=== PATIENT | female | born 1990 | race Caucasian/White ===

== ENCOUNTER → 2017-09-09 | Outpatient (CLI) | payer SELFPAY ==
[~2017-09-09] VITALS: Ht 167.6 cm; Wt 120.0 kg
[~2017-09-09] MED LIST: LORA-446 PO; PREN1TAB69 PO; SERT100T5 PO; TRAM50TA2 PO
[2017-09-09 20:59] LABS: HEMATOCRIT 37.7 % (34.6-47.8); HEMOGLOBIN 12.7 g/dL (11.7-16.4); WHITE BLOOD COUNT 8.8 x10^3/uL (3.4-10)
[2017-09-09 21:11] LABS: ASPARTATE AMINO TRANSFERASE 18 U/L (15-37); BLOOD UREA NITROGEN 6 mg/dL (7-18)
== END | disposition home or self-care (01) ==
LOC: LDOP 19:59
PROVIDERS: ATTEND Obstetrics & Gynecology
DX: O26.893 Other specified pregnancy related conditions, third trimester (principal); O36.8130 Decreased fetal movements, third trimester, not applicable or unspecified; O99.343 Other mental disorders complicating pregnancy, third trimester; R10.9 Unspecified abdominal pain; F32.9 Major depressive disorder, single episode, unspecified; Z3A.35 35 weeks gestation of pregnancy
CPT/HCPCS: 36415; 59025; 80053; 81001; 84550; 85025; 87086; 99201; G0463

== ENCOUNTER 2017-09-11 16:42 | Outpatient (CLI) | payer SELFPAY ==
[~2017-09-11] VITALS: Ht 167.6 cm; Wt 120.0 kg
[~2017-09-11 16:42] MED LIST changes: -PREN1TAB69 PO
[2017-09-11 16:59] VITALS: BP 134/89
[2017-09-11] MEDS ORDERED: PREN1TAB69 PO (17:14)
[2017-09-11 18:14] LABS: HEMATOCRIT 38.1 % (34.6-47.8); HEMOGLOBIN 12.9 g/dL (11.7-16.4); WHITE BLOOD COUNT 9.3 x10^3/uL (3.4-10)
[2017-09-11 18:24] LABS: ASPARTATE AMINO TRANSFERASE 13 U/L (15-37); BLOOD UREA NITROGEN 5 mg/dL (7-18)
[2017-09-11] MEDS ORDERED: ACETAMINOPHEN 325 MG TABLET ONE (19:22)
[2017-09-11] MEDS ORDERED: ACETAMINOPHEN 325 MG TABLET PO PRN (19:30)
== END 2017-09-11 20:21 | disposition home or self-care (01) ==
LOC: LDOP 16:42
PROVIDERS: ATTEND Obstetrics & Gynecology
DX: O26.893 Other specified pregnancy related conditions, third trimester (principal); O21.9 Vomiting of pregnancy, unspecified; R42 Dizziness and giddiness; R10.9 Unspecified abdominal pain; R19.7 Diarrhea, unspecified; O99.343 Other mental disorders complicating pregnancy, third trimester; F32.9 Major depressive disorder, single episode, unspecified; Z3A.35 35 weeks gestation of pregnancy
CPT/HCPCS: 36415; 59025; 76819; 80053; 81001; 82248; 82570; 84156; 84550; 85025; 99211; G0463

== ENCOUNTER 2017-09-16 20:08 | Outpatient (CLI) | payer BC ==
[~2017-09-16] VITALS: Ht 167.6 cm; Wt 130.0 kg
[2017-09-16 19:50] VITALS: BP 140/90
[~2017-09-16 20:08] MED LIST changes: +PREN1TAB69 PO
[2017-09-16] MEDS ORDERED: BETAMETHASONE 6 MG/ML, 5ML IM ONE (20:30)
[2017-09-21] MEDS ORDERED: OXYC-302 PO (01:59)
[2017-09-21] MEDS ORDERED: IBUP-1222 PO (02:00)
== END 2017-09-16 20:30 | disposition home or self-care (01) ==
LOC: LDOP 20:08
PROVIDERS: ATTEND Obstetrics & Gynecology
DX: Z23 Encounter for immunization (principal)
CPT/HCPCS: 59025; 96372; 99211; J0702; G0463

== ENCOUNTER 2017-10-14 12:40 | Emergency (ER) | payer BC ==
[~2017-10-14] VITALS: Ht 167.6 cm; Wt 112.6 kg
[~2017-10-14 12:40] MED LIST changes: +IBUP-1222 PO; +OXYC-302 PO
[2017-10-14] MEDS ORDERED: LORazepam 2 MG/ML, 1ML IVPush ONE (14:30)
[2017-10-14] MEDS ORDERED: SODIUM CHLORIDE 0.9% 1,000ML IVBOLUS ONE (14:30)
[2017-10-14] MEDS ORDERED: SODIUM CHLORIDE FLUSH 10ML SYR IVF ONE (14:30)
[2017-10-14] MEDS ORDERED: KETOROLAC 30 MG/1 ML IVPush ONE (14:30)
[2017-10-14] MEDS ORDERED: KETOROLAC 30 MG/1 ML ONE (14:39)
[2017-10-14] MEDS ORDERED: LORazepam 2 MG/ML, 1ML ONE (14:40)
[2017-10-14 14:54] LABS: HEMATOCRIT 42.6 % (34.6-47.8); HEMOGLOBIN 14.4 g/dL (11.7-16.4); WHITE BLOOD COUNT 8.5 x10^3/uL (3.4-10)
[2017-10-14 15:00] LABS: ASPARTATE AMINO TRANSFERASE 11 U/L (15-37); BLOOD UREA NITROGEN 17 mg/dL (7-18)
[2017-10-14 15:06] LABS: IS PT STATUS REG ER OR PRE ER? YES
[2017-10-14 16:10] VITALS: BP 126/92
== END 2017-10-14 16:12 | disposition home or self-care (01) ==
LOC: ED 16:06
DX: R07.1 Chest pain on breathing (principal); F41.1 Generalized anxiety disorder; F32.9 Major depressive disorder, single episode, unspecified
CPT/HCPCS: 36415; 71010; 80053; 84484; 84703; 85025; 85379; 85610; 85730; 93005; 96361; 96374; 96375; 99285; J1885; J2060; J7030

== ENCOUNTER 2017-11-10 03:43 | Emergency (ER) | payer BC ==
[~2017-11-10] VITALS: Ht 167.6 cm; Wt 113.4 kg
[2017-11-10] MEDS ORDERED: BIRTH CONTROL (04:15)
[2017-11-10] MEDS ORDERED: MAALOX/HYOSCYAMINE/LIDOCAINE 45 ML BTL ONE (04:30)
[2017-11-10] MEDS ORDERED: ONDANSETRON 2MG/ML, 2ML IVPush ONE (04:30)
[2017-11-10] MEDS ORDERED: MAALOX/HYOSCYAMINE/LIDOCAINE 45 ML BTL PO ONE (04:30)
[2017-11-10] MEDS ORDERED: FAMOTIDINE 20 MG/2 ML IVP ONE (04:30)
[2017-11-10] MEDS ORDERED: ONDANSETRON 2MG/ML, 2ML ONE (04:30)
[2017-11-10] MEDS ORDERED: MORPHINE SULFATE 4 MG/ML, 1ML IVPush PRN (04:30)
[2017-11-10] MEDS ORDERED: MORPHINE SULFATE 4 MG/ML, 1ML ONE (04:30)
[2017-11-10] MEDS ORDERED: SODIUM CHLORIDE FLUSH 10ML SYR IVF ONE (04:30)
[2017-11-10] MEDS ORDERED: FAMOTIDINE 20 MG/2 ML ONE (04:31)
[2017-11-10 04:54] LABS: BASOPHILS # (AUTO) 0.04 x10^3/uL (0-0.1); BASOPHILS % (AUTO) 0 % (0-1); EOSINOPHILS # (AUTO) 0.12 x10^3/uL (0-0.4); EOSINOPHILS % (AUTO) 1 % (1-7); LYMPHOCYTES # (AUTO) 4.09 x10^3/uL (1-3.4); LYMPHOCYTES % (AUTO) 28 % (22-44); MD NO; MEAN CORPUSCULAR HEMOGLOBIN 30.8 pg (27.0-34.8); MEAN CORPUSCULAR HGB CONC 33.8 g/dL (32.4-35.8); MEAN CORPUSCULAR VOLUME 91.3 fL (80-100); MEAN PLATELET VOLUME 7.8 fL (7.4-10.4); MONOCYTES # (AUTO) 0.77 x10^3/uL (0.2-0.8); MONOCYTES % (AUTO) 5 % (2-9); NEUTROPHILS # (AUTO) 9.55 x10^3/uL (1.8-6.8); NEUTROPHILS % (AUTO) 66 % (42-75); PLATELET COUNT 353 x10^3/uL (130-400); RED BLOOD COUNT 4.42 x10^6/uL (3.82-5.3); RED CELL DISTRIBUTION WIDTH 12.3 % (9.6-15.2)
[2017-11-10 04:55] LABS: ALANINE AMINOTRANSFERASE 47 U/L (12-78); ALBUMIN 3.6 g/dL (3.4-5.0); ANION GAP 10 mmol/L (5-15); CALCIUM 8.7 mg/dL (8.5-10.1); CHLORIDE 108 mmol/L (98-107); CREATININE 0.77 mg/dL (0.55-1.02)
[2017-11-10 04:58] LABS: ALKALINE PHOSPHATASE 93 U/L (45-117); BILIRUBIN,TOTAL 0.6 mg/dL (0.2-1.0); TOTAL PROTEIN 7.5 g/dL (6.4-8.2)
[2017-11-10 05:40] VITALS: BP 124/72
== END 2017-11-10 05:42 | disposition home or self-care (01) ==
LOC: ED 04:06
DX: R10.12 Left upper quadrant pain (principal)
CPT/HCPCS: 36415; 80053; 83690; 85025; 93005; 96374; 96375; 99285; J2405; S0028

== ENCOUNTER 2017-12-01 17:13 | Day surgery (SDC) | payer BC ==
[~2017-12-01] VITALS: Ht 167.6 cm; Wt 111.5 kg
[~2017-12-01 17:13] MED LIST changes: +BIRTH CONTROL
[2017-12-01 18:16] LABS: BASOPHILS # (AUTO) 0.06 x10^3/uL (0-0.1); BASOPHILS % (AUTO) 1 % (0-1); EOSINOPHILS # (AUTO) 0.14 x10^3/uL (0-0.4); EOSINOPHILS % (AUTO) 2 % (1-7); LYMPHOCYTES # (AUTO) 3.57 x10^3/uL (1-3.4); LYMPHOCYTES % (AUTO) 39 % (22-44); MD NO; MEAN CORPUSCULAR HEMOGLOBIN 30.6 pg (27.0-34.8); MEAN CORPUSCULAR HGB CONC 33.1 g/dL (32.4-35.8); MEAN CORPUSCULAR VOLUME 92.3 fL (80-100); MEAN PLATELET VOLUME 7.8 fL (7.4-10.4); MONOCYTES # (AUTO) 0.79 x10^3/uL (0.2-0.8); MONOCYTES % (AUTO) 9 % (2-9); NEUTROPHILS # (AUTO) 4.66 x10^3/uL (1.8-6.8); NEUTROPHILS % (AUTO) 51 % (42-75); PLATELET COUNT 433 x10^3/uL (130-400); RED BLOOD COUNT 4.74 x10^6/uL (3.82-5.3); RED CELL DISTRIBUTION WIDTH 13.6 % (9.6-15.2)
[2017-12-01 18:27] LABS: ALANINE AMINOTRANSFERASE 242 U/L (12-78); ALBUMIN 3.7 g/dL (3.4-5.0); ANION GAP 8 mmol/L (5-15); CALCIUM 8.9 mg/dL (8.5-10.1); CHLORIDE 108 mmol/L (98-107); CREATININE 0.92 mg/dL (0.55-1.02)
[2017-12-01 18:32] LABS: ALKALINE PHOSPHATASE 200 U/L (45-117); BILIRUBIN,TOTAL 0.8 mg/dL (0.2-1.0); TOTAL PROTEIN 7.9 g/dL (6.4-8.2)
[2017-12-01] MEDS ORDERED: SODIUM CHLORIDE FLUSH 10ML SYR IVF ONE (20:00)
[2017-12-01] MEDS ORDERED: ONDANSETRON 2MG/ML, 2ML IVPush ONE (20:00)
[2017-12-01] MEDS ORDERED: MORPHINE SULFATE 4 MG/ML, 1ML ONE (20:00)
[2017-12-01] MEDS ORDERED: MORPHINE SULFATE 4 MG/ML, 1ML IVPush PRN ×2 (20:00→20:30)
[2017-12-01] MEDS ORDERED: SODIUM CHLORIDE 0.9% 1,000ML IVBOLUS ONE (20:00)
[2017-12-01] MEDS ORDERED: ONDANSETRON 2MG/ML, 2ML ONE (20:00)
[2017-12-01] MEDS ORDERED: SODIUM CHLORIDE 0.9% 1,000 ML IV ONE (20:08)
[2017-12-01 20:29] LABS: MICROSCOPIC INDICATED
[2017-12-01] MEDS ORDERED: SODIUM CHLORIDE FLUSH 10ML SYR IVF PRN (20:30)
[2017-12-01] MEDS ORDERED: ONDANSETRON 2MG/ML, 2ML IVPush PRN (20:30)
[2017-12-01 20:32] LABS: CULTURE INDICATED? YES
[2017-12-01] MEDS ORDERED: SERT100T5 PO (20:32)
[2017-12-01 22:02] VITALS: BP 133/90
[2017-12-02 00:35] VITALS: BP 126/83
[2017-12-02] MEDS ORDERED: HYDROmorphone 2 MG/ML, 1ML ONE ×2 (05:58→18:09)
[2017-12-02] MEDS: HYDROmorphone 2 MG/ML, 1ML IVPush PRN ×2 (06:01→08:08)
[2017-12-02 07:58] VITALS: BP 124/83
[2017-12-02] MEDS ORDERED: ACETAMINOPHEN 325 MG TABLET PO ONE (13:30)
[2017-12-02 13:40] VITALS: BP 135/86
[2017-12-02] MEDS ORDERED: BUPIVACAINE/PF 0.5% ONE (15:12)
[2017-12-02] MEDS ORDERED: SUGAMMADEX 200 MG/2 ML IVPush ONE (15:31)
[2017-12-02] MEDS ORDERED: FENTANYL PF 100 MCG/2ML ONE ×2 (16:24→17:24)
[2017-12-02] MEDS ORDERED: DEXAMETHASONE 4 MG/ML, 1ML ONE (16:25)
[2017-12-02] MEDS ORDERED: GLYCOPYRROLATE 0.2MG/1ML, 5ML ONE (16:25)
[2017-12-02] MEDS ORDERED: ROCURONIUM 10 MG/ML,10ML ONE (16:25)
[2017-12-02] MEDS ORDERED: NEOSTIGMINE 1 MG/ML, 10ML ONE (16:25)
[2017-12-02] MEDS ORDERED: CEFAZOLIN 1,000 MG ONE (16:25)
[2017-12-02] MEDS ORDERED: PROPOFOL 10 MG/ML, 20ML ONE (16:25)
[2017-12-02] MEDS ORDERED: ONDANSETRON 2MG/ML, 2ML ONE (16:25)
[2017-12-02] MEDS ORDERED: SUCCINYLCHOLINE 20 MG/ML, 10ML ONE (16:25)
[2017-12-02] MEDS ORDERED: MIDAZOLAM 1 MG/ML, 2ML ONE ×2 (16:35→17:24)
[2017-12-02] MEDS ORDERED: BUPIVACAINE/PF-EPI 0.5% 1:200K IM ONE (16:54)
[2017-12-02] MEDS ORDERED: LACTATED RINGERS 1,000 ML IV SCH (17:14)
[2017-12-02] MEDS: FENTANYL PF 100 MCG/2ML IV PRN ×2 (17:20→17:47)
[2017-12-02] MEDS ORDERED: ACETAMINOPHEN 650 MG/20.3 ML UDC ONE (17:23)
[2017-12-02] MEDS ORDERED: OXYcodone 5 MG/5 ML ORAL.SOL UDC ONE (17:24)
[2017-12-02] MEDS ORDERED: HYDROcodone/APAP 5/325 TABLET PO PRN (17:30)
[2017-12-02] MEDS ORDERED: morphine SULFATE 10 MG/ML, 1ML IVPush PRN (17:30)
[2017-12-02] MEDS ORDERED: MEPERIDINE/PF 25MG/0.5ML IVPush PRN (17:30)
[2017-12-02] MEDS ORDERED: KETOROLAC 30 MG/1 ML IM PRN ×2 (17:30)
[2017-12-02] MEDS ORDERED: KETOROLAC 30 MG/1 ML IV PRN ×2 (17:30)
[2017-12-02] MEDS ORDERED: LORazepam 2 MG/ML, 1ML IVPush PRN (17:30)
[2017-12-02] MEDS ORDERED: ACETAMINOPHEN 325 MG TABLET PO PRN (17:30)
[2017-12-02] MEDS ORDERED: HYDROcodone/APAP 7.5-325MG/15ML UDC PO PRN (17:30)
[2017-12-02] MEDS ORDERED: morphine SULFATE 10 MG/ML, 1ML IV PRN (17:30)
[2017-12-02] MEDS ORDERED: MIDAZOLAM 1 MG/ML, 2ML IV PRN (17:30)
[2017-12-02] MEDS ORDERED: ONDANSETRON 2MG/ML, 2ML IVPush PRN ×2 (17:30)
[2017-12-02] MEDS ORDERED: DIAZEPAM 5 MG/ML, 2ML IVPush PRN (17:30)
[2017-12-02] MEDS: OXYcodone 5 MG/5 ML ORAL.SOL UDC PO PRN ×2 (17:35→17:42)
[2017-12-02] MEDS: HYDROmorphone 1 MG/ML, 1ML IV PRN ×2 (18:13→18:34)
[2017-12-02] MEDS ORDERED: HYDR-3240 PO (19:25)
[2017-12-02] MEDS ORDERED: OXYC-302 PO (19:27)
[2017-12-02 19:37] VITALS: BP 144/97
[2017-12-03] MEDS ORDERED: SERTRALINE 50MG TABLET PO SCH (09:00)
== END 2017-12-02 20:30 ==
LOC: ED 19:52 → EDIP 20:08 → UNDOADMIN 20:08 → EDIP 21:43 → 4NOR 21:43 → SDC 12-02 17:14 → UNDODISIN 12-02 20:30 → SDC 12-02 20:30
PROVIDERS: ATTEND Thoracic Surgery (Cardiothoracic Vascular Surgery)
DX: K80.12 Calculus of gallbladder with acute and chronic cholecystitis without obstruction (principal); F41.9 Anxiety disorder, unspecified; F32.9 Major depressive disorder, single episode, unspecified; Z88.5 Allergy status to narcotic agent
CPT/HCPCS: 36415; 47562; 76700; 80053; 81001; 83690; 84703; 85025; 87086; 88304; 96361; 96374; 96375; 99285; J0330; J0690; J1100; J1170; J2405; J2704; J2710; J3010; J3490; J7030; J2250